=== PATIENT | female | born 1940 | race Caucasian/White ===

== ENCOUNTER → 2023-06-29 10:21 | Outpatient (BNVA) | payer MEDICARE, BC, SELFPAY | PROVIDERS: Referring Provider Nurse Practitioner Family; Visit Provider Psychiatry & Neurology Neurology | DX: G62.9 Polyneuropathy, unspecified (principal); E55.9 Vitamin D deficiency, unspecified; E07.9 Disorder of thyroid, unspecified | CPT/HCPCS: 36415; 82306; 82607; 82746; 83735; 83921; 84155; 84165; 84207; 84425; 84443; 84481; 84591; 86334; 86592; 86780; 99203 ==